=== PATIENT | female | born 1975 ===

== ENCOUNTER 2016-09-02 14:59 | Outpatient (CLI) | payer OTHER ==
--- NOTE | 2016-09-04 09:31 | Magnetic Resonance Report ---
BILATERAL BREAST MRI WITHOUT AND WITH CONTRAST: 09/04/16 CLINICAL: A right mammographic asymmetry and abnormal ultrasound finding. COMPAR[facility] [place] TECHNIQUE: Axial 1.0-mm T1 without, axial high resolution 2.0-mm T2, , axial STIR and axial and sagittal STIR with silicon excitation water saturation, sagittal T2 and axial 1.0-mm dynamic Vibrant high-resolution postcontrast T1 fat saturation sequences on a 1.5 Kala magnet. The examination was performed with an 8 channel dedicated [place] breast coil. Post processing with CAD and subtraction was performed on an [employer] workstation. 15.0 cc of Multihance was injected without incident for the contrast portion of the exam. Consent was obtained prior to the administration of the contrast. FINDINGS: Right: Minimal background parenchymal enhancement. Intact silicone implant. No mass or suspicious enhancement of the right breast. Particular attention was given to the region of interest on the recent mammogram and there is normal minimally enhancing breast tissue to correlate with the mammographic density. No suspicious lymph nodes. Left: Minimal background parenchymal enhancement. Intact silicone implant. No mass or suspicious enhancement of the left breast. No suspicious lymph nodes. IMPRESSION: Negative study with no suspicion of malignancy. Recommend routine mammographic screening. BIRADS 1-- Negative
== END 2016-09-02 15:00 | disposition home or self-care (01) ==
LOC: SPVIMAG 14:59
PROVIDERS: ATTEND Surgery
DX: N63 Unspecified lump in breast (principal)
CPT/HCPCS: 0159T; A9577; C8908; 77059